=== PATIENT | female | born 1980 | race Caucasian/White ===

== ENCOUNTER 2023-06-15 09:11 | Emergency (ER) | payer BC ==
[2023-06-15 09:20] VITALS: BP 142/86; O2SAT 96
[2023-06-15 09:45] LABS: RAPID STREP SCREEN POSITIVE (Negative)
[2023-06-15 10:24] LABS: B. PARAPERTUSSIS- RESP PCR PAN NOT DETECTED; B. PERTUSSIS- RESP PCR PANEL NOT DETECTED; C. PNEUMONIAE- RESP PCR PANEL NOT DETECTED; CORONAVIRUS 229E-RESP PCR NOT DETECTED; CORONAVIRUS HKU1-RESP PCR NOT DETECTED; CORONAVIRUS NL63-RESP PCR NOT DETECTED; CORONAVIRUS OC43-RESP PCR NOT DETECTED; HUMAN METAPNEUMOVIRUS NOT DETECTED; INFLUENZA A- RESP PCR PANEL NOT DETECTED; INFLUENZA B - RESP PCR PANEL NOT DETECTED; M. PNEUMONIAE- RESP PCR PANEL NOT DETECTED; PARAINFLUENZA VIRUS 1 NOT DETECTED; PARAINFLUENZA VIRUS 2 NOT DETECTED; PARAINFLUENZA VIRUS 3 NOT DETECTED; PARAINFLUENZA VIRUS 4 NOT DETECTED; RHINOVIRUS/ENTEROVIRUS NOT DETECTED; RSV- RESP PCR PANEL NOT DETECTED; SARS-CoV-2 -RESP PCR PANEL NOT DETECTED
--- NOTE | 2023-06-15 10:24 | ED Physician Documentation ---
History of Present Illness - Stated complaint Stated Complaint: THROAT PX - Chief complaint Chief Complaint: Heent - History obtained from History obtained from: Patient - Additonal information Additional information: The patient comes to the emergency department chief complaint of sore throat. She states its been going on for the last couple of days. She has a history of peritonsillar abscess a couple of times in the past and is concerned about developing this again. She states that her ENT told her that if she ever gets a sore throat, she needs to "get into the emergency department immediately". No swelling. No difficulty breathing. No rhinorrhea. No cough. PD PAST MEDICAL HISTORY - Present Medications Home Medications: Ambulatory Orders Medication Instructions Recorded Confirmed Amoxicillin 500 mg PO TID 7 Days #21 cap 06/15/23 - Allergies Allergies/Adverse Reactions: Allergies Allergy/AdvReac Type Severity Reaction Status Date / Time No Known Drug Allergies Allergy Verified 06/15/23 09:20 PD ED PE NORMAL - Vitals Vital signs reviewed: Yes - General General: Alert and oriented X 3, No acute distress, Well developed/nourished - HEENT HEENT: Atraumatic, PERRL, EOMI, Moist mucous membranes, Other (Pharyngeal erythema. Tonsils 2+. No asymmetry. No exudates.) - Neck Neck: Supple, no meningeal sign, No adenopathy - Respiratory Respiratory: No respiratory distress - Derm Derm: Normal color, Warm and dry, No rash - Extremities Extremities: No deformity - Neuro Neuro: Alert and oriented X 3 - Psych Psych: Normal mood, Normal affect Results - Vitals Vitals: Vital Signs - 24 hr 06/15/23 09:17 Temperature 37.0 C Heart Rate 105 H Respiratory 17 Rate Blood Pressure 142/86 H O2 Saturation 96 Oxygen O2 Source Room air - Labs Labs: Laboratory Tests 06/15/23 06/15/23 09:26 09:26 Nasal Adenovirus (PCR) NOT DETECTED Nasal B. parapertussis DNA (PCR) NOT DETECTED Nasal Coronavir 229E PCR NOT DETECTED Nasal Coronavir HKU1 PCR NOT DETECTED Nasal Coronavir NL63 PCR NOT DETECTED Nasal Coronavir OC43 PCR NOT DETECTED Nasal Enterovir/Rhinovir PCR NOT DETECTED Nasal Influenza B PCR NOT DETECTED Nasal Influenza A PCR NOT DETECTED Nasal Parainfluen 1 PCR NOT DETECTED Nasal Parainfluen 2 PCR NOT DETECTED Nasal Parainfluen 3 PCR NOT DETECTED Nasal Parainfluen 4 PCR NOT DETECTED Nasal RSV (PCR) NOT DETECTED Nasal B.pertussis DNA PCR NOT DETECTED Nasal C.pneumoniae (PCR) NOT DETECTED Adan Human Metapneumo PCR NOT DETECTED Nasal M.pneumoniae (PCR) NOT DETECTED Nasal SARS-CoV-2 (PCR) NOT DETECTED Group A Strep Rapid POSITIVE H PD Medical Decision Making - ED course Complexity details: reviewed results, re-evaluated patient, considered differential, d/w patient ED course: The patient's strep screen was positive. Respiratory PCR panel is pending which was found to be negative. She was started on amoxicillin here in the emergency department. Prescription has been sent for the same. Departure - Departure Disposition: Home, Self Care Clinical Impression: Strep pharyngitis Condition: Stable Instructions: ED Strep Pharyngitis Conf Prescriptions: Amoxicillin 500 mg PO TID 7 Days #21 cap Comments: Your strep test was positive. You have been started on antibiotics for this in the emergency department today. Please take them up this morning and continue the course as directed. A prescription for these has been electronically transmitted to the [facility] pharmacy in [place]. Your viral panel has been sent and is pending at this time. We will call you if there are any significant positives, or you may monitor for your results by going to our hospital website at [email or web address], clicking on the "my [facility]" tab, and signing up for the patient portal. Forms: PCP List Discharge Date/Time: 06/15/23 10:40
[2023-06-15] MEDS ORDERED: AMOXICILLIN 250 MG CAPSULE PO STA (10:30)
== END 2023-06-15 10:40 | disposition home or self-care (01) ==
LOC: ED 09:11
DX: J02.0 Streptococcal pharyngitis (principal); Z20.822 Contact with and (suspected) exposure to COVID-19
CPT/HCPCS: 87430; 87633; 99283; A9270